=== PATIENT | female | born 1965 | race Caucasian/White ===

== ENCOUNTER 2021-02-05 14:44 | Emergency (ER) | payer OTHER ==
--- NOTE | 2021-02-05 15:13 | ED ---
General Adult HPI - General Chief complaint: Fall Stated complaint: fall, rt arm/leg injury Time Seen by Provider: 02/05/21 14:47 Source: patient, EMS, RN notes reviewed, old records reviewed Mode of arrival: EMS Limitations: physical limitation - History of Present Illness Initial comments: Patient is a 55 female with past medical history remarkable for ALLERGIES as well as not up-to-date tetanus vaccine having received it 5 years ago presents emergency Department complaining of mechanical fall. Patient fell from approximately 6 feet off of a ladder inside the house she was cleaning after she lost her balance. She landed on the floor.. She landed onto her right leg and hand. She states that she had an obvious deformity of the right ankle. She was also complaining of pain in the right wrist. She states she was unable to walk afterwards due to her ankle and had to crawl to her car, where she then drove to her house to call EMS. This all occurred this morning. She denies being on blood thinners. She denies hitting her head or experiencing loss consciousness. She denies any back pain, nausea, vomiting, headaches, blurry vision. She is complaining of pain in her right wrist but primarily in her right ankle. She just states she has mild pain over her right hip. She denies any abdominal pain, chest pain. She denies any back pain. She has no other acute complaints at this time. She is concerned that she may have broken something, specifically her ankle. EMS splinted the right wrist and right ankle/foot. She is able to re count the entire event and denies any amnesia or loss of conscious. Patient received 5 mg IV morphine as well as 50 mg IV fentanyl en route to the hospital by EMS. - Related Data Allergies Allergy/AdvReac Type Severity Reaction Status Date / Time BEE STING Allergy Anaphylaxis Uncoded 02/05/21 15:00 Review of Systems ROS Statement: Those systems with pertinent positive or pertinent negative responses have been documented in the HPI. Review of Systems: CONST: Denies fever EYES: Denies blurry vision ENT: Denies nasal congestion C/V: Denies Chest pain RESP: Denies shortness of breath GI: Denies abdominal pain : Denies dysuria SKIN: Denies rash. MSK: Endorses right ankle pain, right wrist pain, right hip pain NEURO: Denies headache ROS Other: All systems not noted in ROS Statement are negative. Past Medical History Past Medical History: No Reported History Additional Past Medical History / Comment(s): HX UTERINE CA History of Any Multi-Drug Resistant Organisms: None Reported Past Surgical History: Hysterectomy Past Psychological History: No Psychological Hx Reported Smoking Status: Current every day smoker Past Alcohol Use History: Occasional Past Drug Use History: Marijuana General Exam - General Exam Comments Initial Comments: General: Appears in mild to moderate distress secondary to pain in her right ankle and right wrist. HEAD: Normal with no signs of head trauma. No Hussein sign. No raccoon eyes. There are no obvious step-offs or deformities of the skull. Patient is no and palpation of the skull or facial bones. EYES: PERRLA, EOMI, conjunctiva normal, no discharge. Pupils are approximately 2-3 mm bilaterally and equally reactive to light. ENT: Hearing grossly intact, normal oropharynx. RESPIRATORY: Clear breath sounds bilaterally. No wheezes, rales, or rhonchi. C/V: Regular rate and rhythm. S1 and S2 auscultated, no edema, peripheral pulses 2+ and intact throughout. Patient has no chest pain to palpation. ABD: Abd is soft, nontender, nondistended. There is no guarding. There are no peritoneal signs. EXT: Patient has no pain on palpation midline of the cervical, thoracic, lumbar spines. Cervical collar is removed by myself clear her cervical spine and she is able to mobilize her neck 45 to either side and has no pain to palpation. Patient's pelvis is stable. She does have mild pain to palpation over the right hip. Patient also has pain to palpation over the bilateral anterior knees over the patella, likely secondary to crawling. She has small abrasions over the sites as well. Patient has reduced range of motion of the right ankle secondary to pain and the splint is applied. She has normal range of motion of the bilateral knees. She has normal range of motion of the bilateral hips. She is reduced range of motion of the right wrist secondary to pain. She is normal range of motion of both hands and right elbow. SKIN: Patient has mild abrasions located at the anterior aspect of bilateral patella. Patient has good capillary refill distal to her injuries in the right toes as well as right fingers. NEURO: Alert and oriented 4. No focal sensory deficits. Patient does have strength deficits of the right ankle and right wrist secondary to pain. She has intact sensation throughout. Cerebellar function is normal and intact. GCS is 15. Limitations: physical limitation Course Vital Signs 02/05/21 02/05/21 02/05/21 14:46 15:15 16:00 Temperature 98.2 F Pulse Rate 98 112 H 79 Respiratory 18 20 18 Rate Blood Pressure 147/114 142/89 115/65 O2 Sat by Pulse 97 98 Oximetry Medical Decision Making - Medical Decision Making Based on the patient's presentation and physical exam, I'm concerned for acute bony genetic injury to the patient's distal right lower extremity and possible right upper extremity. Therefore we will obtain plain film x-rays of the patient's right forearm, wrist, hand as well as right hip, tib-fib, ankle, foot. We'll also obtain x-rays of the bilateral knees that she does have some tenderness to palpation in the bilateral patella. Basic laboratory studies will be obtained. She does not require tetanus booster at this time is her last one was 5 years ago. Patient will be given pain medications for symptomatic analgesia, including IV morphine, Toradol. She was in agreement this plan. Based on Ladson head CT and Skillman C-spine rules, she does not meet criteria for imaging of either the C-spine or brain. The patient was in agreement with this plan. Patient's temperature studies are remarkable for mild leukocytosis of 12.6 which is likely reactive. Remainder of her labs are unremarkable. Patient's imaging revealed a comminuted fracture of the distal tibia and fibula. Patient has an avulsion fracture of the base of the right fifth metatarsal bone. Patient also has a right distal radial fracture of the metaphysis. I spoke with the orthopedic physician recycling assistant over the phone who agreed to evaluate the patient will discuss the case with her attending. The decision was made that the patient should be transferred to a level of higher care, for an ankle trauma surgery orthopedic specialists. Patient and her requested Dave Nguyen. Transfer will be initiated to the site. I spoke with the accepting physician, Dr. Olson. They accepted the transfer. Splinting was completed by the orthopedic surgery physician recycling assistant. Following splinting, patient had intact capillary refill and sensation. A right radial gutter splint was placed and a posterior mold with stirrup splint was placed on the right lower extremity and ankle. Patient tolerated the procedure well. Patient was therefore transferred in serous condition. - Lab Data Result diagrams: 02/05/21 15:12 02/05/21 15:12 Lab Results 02/05/21 02/05/21 02/05/21 Range/Units 15:12 15:12 15:12 WBC 12.6 H (3.8-10.6) k/uL RBC 4.08 (3.80-5.40) m/uL Hgb 13.1 (11.4-16.0) gm/dL Hct 39.2 (34.0-46.0) % MCV 96.1 (80.0-100.0) fL MCH 32.1 (25.0-35.0) pg MCHC 33.4 (31.0-37.0) g/dL RDW 13.7 (11.5-15.5) % Plt Count 294 (150-450) k/uL MPV 7.2 Neutrophils % 84 % Lymphocytes % 9 % Monocytes % 4 % Eosinophils % 1 % Basophils % 0 % Neutrophils # 10.6 H (1.3-7.7) k/uL Lymphocytes # 1.2 (1.0-4.8) k/uL Monocytes # 0.6 (0-1.0) k/uL Eosinophils # 0.1 (0-0.7) k/uL Basophils # 0.0 (0-0.2) k/uL PT 10.1 (9.0-12.0) sec INR 0.9 (<1.2) APTT 20.6 L (22.0-30.0) sec Sodium 138 (137-145) mmol/L Potassium 4.0 (3.5-5.1) mmol/L Chloride 108 H (98-107) mmol/L Carbon Dioxide 24 (22-30) mmol/L Anion Gap 6 mmol/L BUN 12 (7-17) mg/dL Creatinine 0.91 (0.52-1.04) mg/dL Est GFR (CKD-EPI)AfAm 82 (>60 ml/min/1.73 sqM) Est GFR (CKD-EPI)NonAf 71 (>60 ml/min/1.73 sqM) Glucose 106 H (74-99) mg/dL Calcium 9.4 (8.4-10.2) mg/dL Total Bilirubin 0.3 (0.2-1.3) mg/dL AST 28 (14-36) U/L ALT 8 (4-34) U/L Alkaline Phosphatase 97 (38-126) U/L Total Protein 6.5 (6.3-8.2) g/dL Albumin 4.2 (3.5-5.0) g/dL Serum Alcohol <10 mg/dL Blood Type Blood Type Confirm Blood Type Recheck Bld Type Recheck Status Antibody Screen Spec Expiration Date 02/05/21 02/05/21 Range/Units 15:12 16:30 WBC (3.8-10.6) k/uL RBC (3.80-5.40) m/uL Hgb (11.4-16.0) gm/dL Hct (34.0-46.0) % MCV (80.0-100.0) fL MCH (25.0-35.0) pg MCHC (31.0-37.0) g/dL RDW (11.5-15.5) % Plt Count (150-450) k/uL MPV Neutrophils % % Lymphocytes % % Monocytes % % Eosinophils % % Basophils % % Neutrophils # (1.3-7.7) k/uL Lymphocytes # (1.0-4.8) k/uL Monocytes # (0-1.0) k/uL Eosinophils # (0-0.7) k/uL Basophils # (0-0.2) k/uL PT (9.0-12.0) sec INR (<1.2) APTT (22.0-30.0) sec Sodium (137-145) mmol/L Potassium (3.5-5.1) mmol/L Chloride (98-107) mmol/L Carbon Dioxide (22-30) mmol/L Anion Gap mmol/L BUN (7-17) mg/dL Creatinine (0.52-1.04) mg/dL Est GFR (CKD-EPI)AfAm (>60 ml/min/1.73 sqM) Est GFR (CKD-EPI)NonAf (>60 ml/min/1.73 sqM) Glucose (74-99) mg/dL Calcium (8.4-10.2) mg/dL Total Bilirubin (0.2-1.3) mg/dL AST (14-36) U/L ALT (4-34) U/L Alkaline Phosphatase (38-126) U/L Total Protein (6.3-8.2) g/dL Albumin (3.5-5.0) g/dL Serum Alcohol mg/dL Blood Type O Positive Blood Type Confirm O Positive Blood Type Recheck No Previous Record Bld Type Recheck Status CABO Indicated Antibody Screen NEGATIVE Spec Expiration Date 02/08/2021 - 2311 Disposition Clinical Impression: Closed fracture of distal end of fibula with tibia, Fracture of 5th metatarsal, Right radial fracture Disposition: OTHER INSTITUTION NOT DEFINED Condition: Serious Referrals: Nonstaff,Physician [Primary Care Provider] - 1-2 days - Out of Hospital Transfer - Req. Specs Out of Hospital Transfer - Requested Specifics: Other Emergency Center (Transferred to higher level of care. ortho foot ankle trauma specialist at [facility].)
[2021-02-05] MEDS: KETOROLAC 15 MG/ML 1 ML VIAL IVP STA (15:18)
[2021-02-05 15:21] LABS: Basophils % (A) 0 %; Eosinophils # (A) 0.1 k/uL (0-0.7); Eosinophils % (A) 1 %; HCT 39.2 % (34.0-46.0); HGB 13.1 gm/dL (11.4-16.0); Lymphocytes # (A) 1.2 k/uL (1.0-4.8); Lymphocytes % (A) 9 %; MCH 32.1 pg (25.0-35.0); MCHC 33.4 g/dL (31.0-37.0); MCV 96.1 fL (80.0-100.0); Mean Platelet Volume 7.2; Monocytes # (A) 0.6 k/uL (0-1.0); Monocytes % (A) 4 %; Neutrophils # (A) 10.6 k/uL (1.3-7.7); Neutrophils % (A) 84 %; Platelet Count 294 k/uL (150-450); RBC 4.08 m/uL (3.80-5.40); RDW 13.7 % (11.5-15.5); WBC 12.6 k/uL (3.8-10.6)
[2021-02-05] MEDS: MORPHINE SULFATE 4 MG/ML SYRINGE IVP STA ×3 (15:22→18:05)
[2021-02-05 15:31] LABS: ALT 8 U/L (4-34); AST 28 U/L (14-36); African American GFR (CKD) 82 (>60 ml/min/1.73 sqM); Albumin 4.2 g/dL (3.5-5.0); Alcohol <10 mg/dL; Alkaline Phosphatase 97 U/L (38-126); Anion Gap 6 mmol/L; Blood Urea Nitrogen 12 mg/dL (7-17); Calcium 9.4 mg/dL (8.4-10.2); Carbon Dioxide 24 mmol/L (22-30); Chloride 108 mmol/L (98-107); Glucose 106 mg/dL (74-99); Non-African American GFR(CKD) 71 (>60 ml/min/1.73 sqM); Sodium 138 mmol/L (137-145); Total Bilirubin 0.3 mg/dL (0.2-1.3); Total Protein 6.5 g/dL (6.3-8.2)
[2021-02-05 15:37] LABS: INR 0.9 (<1.2); Prothrombin Time 10.1 sec (9.0-12.0)
[2021-02-05 15:57] LABS: Partial Thromboplastin Time 20.6 sec (22.0-30.0)
--- NOTE | 2021-02-05 16:29 | XR ---
EXAMINATION TYPE: XR hand complete RT DATE OF EXAM: 02/05/2021 COMPARISON: None HISTORY: Fall, pain TECHNIQUE: 3 view right hand FINDINGS: Artifact is present causing some limitation. No displaced fractures or dislocations are evident. Joint spaces appear preserved. Soft tissues appea r normal. Follow-up exam can be performed 7-10 days from acute trauma for continued pain. IMPRESSION: 1. No acute osseous abnormality right hand.
--- NOTE | 2021-02-05 16:30 | XR ---
EXAMINATION TYPE: XR chest 1V portable DATE OF EXAM: 02/05/2021 COMPARISON: None INDICATION: Fall TECHNIQUE: Single frontal view of the chest is obtained. FINDINGS: The heart size is normal. The pulmonary vasculature is normal. The lungs are clear. No pneumothorax is evident. No displaced rib fractures are identified. IMPRESSION: 1. No acute pulmonary process.
[2021-02-05 16:32] VITALS: RESP 18
--- NOTE | 2021-02-05 16:32 | XR ---
EXAMINATION TYPE: XR Hip RT and AP Pelvis DATE OF EXAM: 02/05/2021 COMPARISON: None HISTORY: Fall TECHNIQUE: AP pelvis with 2 view right hip FINDINGS: Femoral heads articulate with the acetabulum. No acute fracture or dislocation of the right hip is evident. Symphysis pubis and sacroiliac joints are normal. Normal bowel gas is present. Follo w-up can be performed as clinically indicated. IMPRESSION: 1. Normal right hip and AP pelvis
--- NOTE | 2021-02-05 16:34 | XR ---
EXAMINATION TYPE: XR foot limited RT DATE OF EXAM: 02/05/2021 COMPARISON: None HISTORY: Fall, pain TECHNIQUE: 2 view left foot FINDINGS: Oblique and lateral views of the foot were obtained. Comminuted fracture distal fibula is n oted. Comminuted fracture of the distal tibia is noted. There is an avulsion from the base of the fifth metatarsal. No additional fractures are evident withi n the foot. Alignment appears preserved. Soft tissue swelling over the ankle is present. IMPRESSION: 1. Comminuted fractures distal tibia and fibula. Please see foreleg for additional dictation. 2. Avulsion from the base of the fifth metatarsal.
--- NOTE | 2021-02-05 16:36 | XR ---
EXAMINATION TYPE: XR knee complete RT DATE OF EXAM: 02/05/2021 COMPARISON: None HISTORY: Fall from 6 foot ladder, pain TECHNIQUE: 3 view right knee FINDINGS: Joint spaces are preserved. No joint effusion is evident. No acute fracture or dislocation is evident within the [id number]. Follow up exams can be performed 7-10 days from acute trauma for continued pain. IMPRESSION: 1. Normal three-view right knee
--- NOTE | 2021-02-05 16:39 | XR ---
EXAMINATION TYPE: XR wrist complete RT DATE OF EXAM: 02/05/2021 COMPARISON: None HISTORY: Fall TECHNIQUE: 2 view right wrist FINDINGS: Right wrist is examined in 2 projections. There is deformity of the anterior distal radius with some anterior angulation. Correlate for fracture. This has intra-articular extension. Small step -off of the articular surface of the radius is evident. Follow up exams can be performed 7-10 days fr om acute trauma for continued pain. IMPRESSION: 1. Distal metaphyseal radial fracture appears to some anterior angulation. Soft tissue swelling over the fracture site.
--- NOTE | 2021-02-05 16:44 | XR ---
EXAMINATION TYPE: XR forearm RT DATE OF EXAM: 02/05/2021 COMPARISON: Right wrist same date HISTORY: Fall, pain TECHNIQUE: 2 view right forearm FINDINGS: There is a distal radial fracture with anterior angulation of approximately 30 degrees. Thi s has intra-articular extension. The radius aligns normally with the humerus. Diffuse distal forearm soft tissue swelling is present. IMPRESSION: 1. Distal radial fracture with intra-articular extension and angulation.
--- NOTE | 2021-02-05 16:47 | XR ---
EXAMINATION TYPE: XR tibia fibula RT DATE OF EXAM: 02/05/2021 COMPARISON: None HISTORY: Fall, pain TECHNIQUE: 2 view right tibia and fibula FINDINGS: There are comminuted fractures of the distal tibia and fibula. The distal foot appears to b e rotated laterally in relation to the proximal leg. There is dorsal angulation of distal tibial frac ture. There is anterior angulation of the distal fragment proximal portion in relation to the more pr oximal fibula. Some overlap of the fracture fragments is evident. Note is made of a fifth metatarsal avulsion fracture at the base. IMPRESSION: 1. Comminuted distal tibial and fibular fractures with dorsal angulation of the distal fracture frag ments. 2. Avulsion from the fifth metatarsal
--- NOTE | 2021-02-05 16:49 | XR ---
EXAMINATION TYPE: XR ankle limited RT DATE OF EXAM: 02/05/2021 COMPARISON: None HISTORY: Fall, pain TECHNIQUE: 2 view right ankle FINDINGS: Comminuted fracture the distal tibia and fibula are present. There is dorsal angulation of the distal fracture fragments in relation to the proximal fracture fragments. The fibular fracture ov erlies bayonet deformity. Dorsal tibial fracture may be present. There is diffuse soft tissue swellin g at the fracture site. Note is made of a avulsion of the fifth metatarsal base. IMPRESSION: 1. Comminuted fractures of the distal tibia and fibula. 2. Avulsion from the fifth metatarsal base
--- NOTE | 2021-02-05 18:18 | P.CNOR ---
History of Present Illness - [facility] Consult date: 02/05/21 Consult reason: fracture (Right wrist, right ankle, right foot fractures) History of present illness: This is a 55-year-old female who presented to the emergency department this afternoon after falling approximately 6 feet from a ladder and sustained multiple injuries. Primarily orthopedics was consulted for the right ankle fracture. She also sustained a distal radius fracture and an avulsion of the fifth metatarsal right foot. Past Medical History Past Medical History: No Reported History Additional Past Medical History / Comment(s): HX UTERINE CA History of Any Multi-Drug Resistant Organisms: None Reported Past Surgical History: Hysterectomy Past Psychological History: No Psychological Hx Reported Smoking Status: Current every day smoker Past Alcohol Use History: Occasional Past Drug Use History: Marijuana Medications and Allergies Allergies Allergy/AdvReac Type Severity Reaction Status Date / Time BEE STING Allergy Anaphylaxis Uncoded 02/05/21 15:00 Physical Examination This is a pleasant 55-year-old female in no acute distress. She is alert and oriented 3. Exam of the head neck reveal no obvious deformity. No pain palpation about cervical spine or paraspinal musculature. Exam of the upper ex tremities reveals mild swelling to the right wrist. No obvious deformity. No erythema or ecchymosis. No open wounds or abrasions. Neurovascular status to the upper extremity is intact. Exam of the lower extremities reveals slight deformity at the right ankle. No open wounds or abrasions. There is a been ecchymosis and swelling to the ankle. Pedal pulse is present assessed by Doppler. She is able to wiggle her toes. She has good capillary refill to the toes. Neurovascular status to the lower extremity is intact. The remainder of her musculoskeletal exam is unremarkable. Results X-rays of the right ankle reveals a comminuted and angulated Pilon-type fracture to the distal tibia and a distal fibula. X-rays of the right wrist reveal an intra-articular distal radius fracture with minimal displacement. X-rays of the right foot reveal an avulsion fracture off the base of the fifth metatarsal. X-rays of the right knee are negative. Computed tomography scan of the head and neck, chest abdomen and pelvis are reportedly negative for acute process. - Labs Labs: Abnormal Lab Results - Last 24 Hours (Table) 02/05/21 02/05/21 02/05/21 Range/Units 15:12 15:12 15:12 WBC 12.6 H (3.8-10.6) k/uL Neutrophils # 10.6 H (1.3-7.7) k/uL APTT 20.6 L (22.0-30.0) sec Chloride 108 H (98-107) mmol/L Glucose 106 H (74-99) mg/dL H & H 02/05/21 Range/Units 15:12 Hgb 13.1 (11.4-16.0) gm/dL Hct 39.2 (34.0-46.0) % Coagulation 02/05/21 Range/Units 15:12 INR 0.9 (<1.2) Result Diagrams: 02/05/21 15:12 02/05/21 15:12 Assessment and Plan (1) Pilon fracture of tibia Current Visit: Yes Status: Acute Code(s): S82.873A - DISPLACED PILON FRACTURE OF UNSP TIBIA, INIT FOR CLOS FX SNOMED Code(s): 253175688 (2) Closed fracture of distal end of fibula with tibia Current Visit: Yes Status: Acute Code(s): S82.309A - UNSP FRACTURE OF LOWER END OF UNSP TIBIA, INIT FOR CLOS FX; S82.839A - OTH FRACTURE OF UPPER AND LOWER END OF UNSP FIBULA, INIT SNOMED Code(s): 787127730 (3) Fracture of 5th metatarsal Current Visit: Yes Status: Acute Code(s): S92.353A - DISP FX OF FIFTH METATARSAL BONE, UNSP FOOT, INIT SNOMED Code(s): 633554829 (4) Right radial fracture Current Visit: Yes Status: Acute Code(s): S52.91XA - UNSP FRACTURE OF RIGHT FOREARM, INIT FOR CLOS FX SNOMED Code(s): 34834008 Plan: The clinical and x-ray findings are discussed with the patient and her significant other. It is recommended that she be transferred to a tertiary care center for further orthopedic evaluation and treatment of her right ankle fracture. She is placed in a well-padded short leg splint as well as a short arm splint to the right wrist. We anticipate transfer this evening to [facility] orthopedic trauma.
[2021-02-05 19:44] VITALS: BP 121/79; PULSE 74; TEMP 97.4
== END 2021-02-05 19:44 | disposition other institution (70) ==
LOC: EC 14:44
DX: S92.351A Displaced fracture of fifth metatarsal bone, right foot, initial encounter for closed fracture (principal); S82.391A Other fracture of lower end of right tibia, initial encounter for closed fracture; S82.831A Other fracture of upper and lower end of right fibula, initial encounter for closed fracture; S52.571A Other intraarticular fracture of lower end of right radius, initial encounter for closed fracture; M25.551 Pain in right hip; F17.200 Nicotine dependence, unspecified, uncomplicated; F12.90 Cannabis use, unspecified, uncomplicated; W11.XXXA Fall on and from ladder, initial encounter; Y92.009 Unspecified place in unspecified non-institutional (private) residence as the place of occurrence of the external cause
CPT/HCPCS: 36415; 86900; 86901; 80053; 85025; 85610; 85730; 86850; 80320; 73502; 73090; 73110; 73130; 73590; 73562; 73600; 73620; 71045; 99285; 96374; 96375; 96376 ×2; 29125; 29515; J2270; J1885